=== PATIENT | male | born 1960 | race Caucasian/White ===

== ENCOUNTER 2016-05-19 15:37 | Emergency (ER) | payer SELFPAY ==
[2016-05-19] MEDS ORDERED: oxyCODONE/Acetamin 5/325 MG* TAB PO ONE ×2 (16:53→17:34)
--- NOTE | 2016-05-19 16:53 | ED ---
Throat Pain/Nasal Congestion - HPI Summary HPI Summary: 56 M presents with glue to left eye today at 3:30pm. He immediately flushed the area. He got PCP glue in his eye. He does not wear contact but he wears reading glasses. He admits to a decrease in vision and blurry vision. He states thaqt he has a foreign body sensation in his eye. He denies any sinus congestion, ear pain, or fever. - History of Current Complaint Chief Complaint: EDEyeProblem Time Seen by Provider: 05/19/16 16:23 - Allergies/Home Medications Allergies/Adverse Reactions: Allergies Allergy/AdvReac Type Severity Reaction Status Date / Time Sulfamethoxazole Allergy Shortness Verified 03/26/16 06:08 w/Trimethoprim of Breath [From Bactrim] PMH/Surg Hx/FS Hx/Imm Hx Endocrine/Hematology History: Denies: Hx Diabetes, Hx Thyroid Disease Respiratory History: Reports: Hx Chronic Obstructive Pulmonary Disease (COPD) Denies: Hx Asthma, Hx Lung Cancer, Hx Pneumonia, Hx Seasonal Allergies Sensory History: Reports: Hx Contacts or Glasses Opthamlomology History: Reports: Hx Contacts or Glasses Infectious Disease History: No Infectious Disease History: Reports: Hx of Known/Suspected MRSA Denies: Traveled Outside the [place] in Last 30 Days - Family History Known Family History: Negative: Cardiac Disease, Hypertension, Diabetes - Social History Alcohol Use: Weekly Alcohol Amount: 3-4 beers per day Hx Substance Use: No Substance Use Type: Reports: None Hx Tobacco Use: Yes Smoking Status (MU): Light Every Day Tobacco Smoker Type: Cigarettes Have You Smoked in the Last Year: Yes Review of Systems Negative: Fever Positive: Other - eye foreign body Negative: Chest Pain Negative: Shortness Of Breath All Other Systems Reviewed And Are Negative: Yes Physical Exam Triage Information Reviewed: Yes Vital Signs On Initial Exam: Initial Vitals Temp Pulse Resp BP Pulse Ox 97.8 F 88 18 151/81 98 05/19/16 15:38 05/19/16 15:38 05/19/16 15:38 05/19/16 15:38 05/19/16 15:38 Vital Signs Reviewed: Yes Appearance: Positive: Well-Appearing Skin: Positive: Warm, Dry Head/Face: Positive: Normal Head/Face Inspection Eyes: Positive: EOMI, GONSALO, Other: - elena exam shows large amount of glue present at 3 and 9 position ENT: Positive: Normal ENT inspection, Pharynx normal, TMs normal Neck: Positive: Supple, Nontender, No Lymphadenopathy Respiratory/Lung Sounds: Positive: Clear to Auscultation, Breath Sounds Present Cardiovascular: Positive: Normal, RRR Procedures - Eye Procedure Alcaine Drops Administered: Yes Eye FB Removal: removal w/ cotton swab - unable to remove Eye Irrigated w/ Saline (ccs): 2,000 Antibiotic Ointment/Drps Admin: left eye Diagnostics - Vital Signs Vital Signs Temp Pulse Resp BP Pulse Ox 05/19/16 15:38 97.8 F 88 18 151/81 98 - Laboratory Result Diagrams: 05/19/16 18:18 05/19/16 18:18 Lab Statement: Any lab studies that have been ordered have been reviewed, and results considered in the medical decision making process. Re-Evaluation - Re-Evaluation First Eval Re-Evaluation Time: 18:00 Change: Worse Comment: patient has temp of 100.2 so ordered labs EENT Course/Dx - Course Course Of Treatment: 56 M presents with PCP glue in left eye. Coral called posion control and they said use a kimi lens until the ph is 7. ph 8 after first liter but 7 after second. elena lamp is improved but still has glue located on scerla at 3 and 9 clock position, patient developed elevated temperature and became shakey likely due to pain so got some labs that were normal, will placed on cipro drops and have follow up with optho, spoke with dr santana who said can give tetracaine as long as patient uses saline with it, patient understands and agrees with plan - Differential Diagnoses Differential Diagnoses: Conjunctivitis, Corneal Abrasion, Foreign Body - Diagnoses Provider Diagnoses: foreign body in left eye Discharge - Discharge Plan Condition: Good Disposition: HOME Prescriptions: oxyCODONE/Acetamin 5/325 MG* [Percocet 5/325 TAB*] 1 tab PO Q4H PRN #15 tab MDD 6 PRN Reason: Pain Patient Education Materials: Eye Foreign Body (ED) Referrals: Naveen Burger MD [Medical Doctor] - Marko Graves MD [Primary Care Provider] - Additional Instructions: Take 1 drop left eye 4 times a day for 5 days Take ibuprofen for pain and narcotic for break through pain every 6 hours Use tetracaine drop 1 drop left eye with a drop of normal saline in eye every 4 hours for 2 days, do not overuse Follow up with optho tomorrow Return to ED if develop any new or worsening symptoms
[2016-05-19 18:31] LABS: Hematocrit 45 % (42-52); Hemoglobin 14.9 g/dl (14.0-18.0); Mean Corpuscular HGB Conc 34 g/dl (31-36); Mean Corpuscular Hemoglobin 33 pg (27-31); Mean Corpuscular Volume 100 fL (80-94); Mean Platelet Volume 9 um3 (7.4-10.4); Red Blood Count 4.46 10^6/ul (4.0-5.4); Red Cell Distribution Width 14 % (10.5-15); White Blood Count 9.7 10^3/ul (3.5-10.8)
[2016-05-19] MEDS ORDERED: Ciprofloxacin 0.3% OPTH.SOL* 2.5 ML BTL LEFT EYE ONE (18:39)
[2016-05-19 18:42] LABS: Albumin 4.1 g/dL (3.2-5.2); BUN/Creatinine Ratio 23.9 (8-20); Calcium 9.2 mg/dL (8.6-10.3); EGFR African American 114.8 (>60); EGFR Non-African American 89.3 (>60); Globulin 2.2 g/dL (2-4); Total Bilirubin 0.5 mg/dL (0.2-1.0); Total Protein 6.3 g/dL (6.4-8.9)
[2016-05-19 19:02] VITALS: BP 144/70
== END 2016-05-19 19:01 | disposition home or self-care (01) ==
LOC: ED 15:37
DX: T15.92XA Foreign body on external eye, part unspecified, left eye, initial encounter (principal); X58.XXXA Exposure to other specified factors, initial encounter; Y93.9 Activity, unspecified; Y92.9 Unspecified place or not applicable; Y99.9 Unspecified external cause status; H53.8 Other visual disturbances
CPT/HCPCS: 36415; 80053; 83605; 85025; 99282; A9270-GY